=== PATIENT | female | born 1970 | race Caucasian/White ===

== ENCOUNTER 2025-08-25 15:15 | Emergency (ER) | payer MEDICAID ==
[~2025-08-25] VITALS: Ht 162.6 cm; Wt 95.0 kg
[2025-08-25 15:34] VITALS: O2SAT 99
[2025-08-25 16:17] LABS: BASOPHILS % 1.0 % (0.0-2.0); EOSINOPHILS % 2.6 % (0.0-5.0); HEMATOCRIT. 39.6 % (36.0-48.0); HEMOGLOBIN. 13.1 g/dL (12.0-16.0); LYMPHOCYTES % 28.7 % (20.0-50.0); MEAN PLATELET VOLUME 7.3 fl (7.4-10.4); MONOCYTES % 5.9 % (2.0-8.0); NEUTROPHILS % 61.8 % (40.0-76.0); PLATELET 394 x1000/uL (130-400); RED BLOOD CELL COUNT 4.44 mill/uL (4.2-5.4); RED CELL DISTRIBUTION WIDTH 12.7 % (11.6-14.6)
[2025-08-25] MEDS: IBUPROFEN 600MG TABLET PO ONE (16:27)
[2025-08-25] MEDS: FAMOTIDINE 20MG TABLET PO ONE (16:27)
[2025-08-25] MEDS: ONDANSETRON 4MG ODT PO ONE (16:28)
[2025-08-25 16:36] LABS: CREATININE 0.7 mg/dL (0.6-1.0); UREA NITROGEN BLOOD 14 mg/dL (9-23)
[2025-08-25 16:37] LABS: PROTEIN TOTAL 7.1 g/dL (6.0-8.3)
[2025-08-25 16:38] LABS: ASPARTATE AMINOTRANSFERASE 12 IU/L (<34); BILIRUBIN DIRECT < 0.1 mg/dL (<=3.0); BILIRUBIN TOTAL 0.3 mg/dL (0.1-1.0)
[2025-08-25 16:41] LABS: INR 1.0
[2025-08-25] MEDS ORDERED: IBUP-2030 MT (17:32)
[2025-08-25] MEDS ORDERED: PROT40 MT (17:33)
[2025-08-25] MEDS ORDERED: SIME125C MT (17:33)
[2025-08-25 17:55] VITALS: BP 141/87; PULSE 62; RESP 16; TEMP 36.7; O2SAT 99
[2025-08-25 20:27] LABS: CLARITY URINE CLEAR (CLEAR); COLOR URINE YELLOW (YELLOW); GLUCOSE URINE 3+ (NEGATIVE); KETONES URINE NEGATIVE (NEGATIVE); LEUKOCYTE ESTERASE URINE NEGATIVE (NEGATIVE); NITRITE URINE NEGATIVE (NEGATIVE); OCCULT BLOOD URINE NEGATIVE (NEGATIVE); PH URINE 6.0 (4.5-8.0); PROTEIN URINE NEGATIVE (NEGATIVE); SPECIFIC GRAVITY URINE 1.027 (1.005-1.030); UROBILINOGEN URINE 0.2 E.U./dL (0.2-1.0)
[2025-08-25 20:43] LABS: BACTERIA URINE 1+; RBC URINE 0-2 /hpf (0-2); SQUAMOUS EPITHELIAL CELL URINE FEW /lpf (RARE/1+); WBC URINE 0-2 /hpf (0-2)
== END 2025-08-25 18:00 | disposition home or self-care (01) ==
LOC: ER 15:15
DX: K80.20 Calculus of gallbladder without cholecystitis without obstruction (principal); E11.9 Type 2 diabetes mellitus without complications; Z79.899 Other long term (current) drug therapy
CPT/HCPCS: 80076; 80048; 81003; 83690; 85025; 85610; 36415; 74176; 99284; Q0162; Z7610